=== PATIENT | female | born 1935 | race Caucasian/White ===

== ENCOUNTER 2017-04-19 16:37 | Emergency (ER) | payer MEDICARE, OTHER ==
[2017-04-19] MEDS ORDERED: AMOXICILLIN TR/POT CLAVULANATE 500-125 MG TAB PO ONE (18:22)
[2017-04-19] MEDS ORDERED: AMOXICILLIN TRIHYDRATE 500 MG CAPSULE PO ONE (18:22)
--- NOTE | 2017-04-19 18:23 | ER Document Report ---
ED Medical Screen (RME) - General Chief Complaint: Leg Swelling Stated Complaint: LEG SWELLING Time Seen by Provider: 04/19/17 18:17 Mode of Arrival: Ambulatory Information source: Patient Notes: 81 yo non dm, HTN, hypothyroid, female c/o soreness back of whole left leg since last week. Thigh seemed better after rubbing it with lindoment. Calf still hurts and its real swollen and red, warm. Pt has cat, which grabs her legs but she doesn't think it is a cat scratch-she runs into things. Leg is swollen, hot, tender with crusted wound that she was not aware of lower lateral leg. 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 TRAVEL OUTSIDE OF THE [place] IN LAST 30 DAYS: No - Related Data Allergies/Adverse Reactions: Estrogens Allergy (Verified 04/19/17 16:42) Past Medical History - Past Medical History Cardiac Medical History: Reports: Hx Hypercholesterolemia, Hx Hypertension Pulmonary Medical History: Reports: Hx Tuberculosis Past Surgical History: Reports: Hx Cardiac Surgery - 3 cabg - Immunizations Hx Diphtheria, Pertussis, Tetanus Vaccination: No Physical Exam - Vital signs Vitals: Temp Pulse BP Pulse Ox 98.1 F 82 160/78 H 97 04/19/17 16:56 04/19/17 16:56 04/19/17 16:56 04/19/17 16:56 Course - Vital Signs Vital signs: Temp Pulse Resp BP Pulse Ox 98.1 F 82 160/78 H 97 04/19/17 16:56 04/19/17 16:56 04/19/17 16:56 04/19/17 16:56
--- NOTE | 2017-04-19 20:50 | RADIOLOGY REPORT (SQ) ---
EXAM DESCRIPTION: VENOUS UNILATERAL LOWER COMPLETED DATE/TIME: 04/19/2017 8:39 pm REASON FOR STUDY: left lower leg swelling and pain COMPARISON: None. TECHNIQUE: Dynamic and static ramos scale and color images acquired of the left leg venous system. Se lected spectral images acquired with additional compression and augmentation maneuvers. The contralat eral common femoral vein and saphenofemoral junction were also imaged. Images stored on PACS. LIMITATIONS: None. FINDINGS: COMMON FEMORAL: Normal phasicity, compression and augmentation. No visualized echogenic ma terial on ramos scale. No defects on color images. FEMORAL: Normal compression and augmentation. No visualized echogenic material on ramos scale. No defe cts on color images. POPLITEAL: Normal compression, augmentation. No visualized echogenic material on ramos scale. No defec ts on color images. CALF VESSELS: Normal compression, augmentation. No visualized echogenic material on ramos scale. No de fects on color images. GSV and SSV: Normal compression, augmentation. No visualized echogenic material on ramos scale. No def ects on color images. ANY DEEP VENOUS INSUFFICIENCY: Not evaluated. ANY EVIDENCE OF POPLITEAL CYST: No. OTHER: No other significant finding. CONTRALATERAL COMMON FEMORAL VEIN AND SAPHENOFEMORAL JUNCTION: Normal phasicity, compression and augmentation. No visualized echogenic material on ramos scale. No de fects on color images. IMPRESSION: NO EVIDENCE DVT OR SVT IN THE LEFT LEG. TECHNICAL DOCUMENTATION: JOB ID: [id number] [id number] 2010 [employer]- All Rights Reserved
[2017-04-19 21:26] LABS: ABSOLUTE EOSINOPHILS # (AUTO) 0.1 10^3/uL (0.0-0.6); ABSOLUTE LYMPHOCYTES (AUTO) 1.4 10^3/uL (0.5-4.7); ABSOLUTE MONOCYTES (AUTO) 0.5 10^3/uL (0.1-1.4); ABSOLUTE NEUT (AUTO) 3.9 10^3/uL (1.7-8.2); BASOPHILS % (AUTO) 0.6 % (0-2); EOSINOPHILS % (AUTO) 1.7 % (0-6); HEMATOCRIT 36.4 % (36.0-47.0); HEMOGLOBIN 12.4 g/dL (12.0-15.5); MEAN CORPUSCULAR HEMOGLOBIN 30.1 pg (27.0-33.4); MEAN CORPUSCULAR VOLUME 88 fl (80-97); MONOCYTES % (AUTO) 8.8 % (3-13); PLATELET COUNT 309 10^3/uL (150-450); RED BLOOD COUNT 4.12 10^6/uL (3.72-5.28); RED CELL DISTRIBUTION WIDTH 13.2 % (11.5-14.0); SEGMENTED NEUTROPHILS % (AUTO) 65.9 % (42-78); TOTAL CELLS COUNTED % (AUTO) 100 %
[2017-04-19 21:34] LABS: INTERNATIONAL RATION (INR) 0.81; PROTHROMBIN TIME 11.8 SEC (11.4-15.4)
[2017-04-19 21:36] LABS: PARTIAL THROMBOPLASTIN TIME 28.5 SEC (23.5-35.8)
[2017-04-19 21:53] LABS: ALANINE AMINOTRANSFERASE 36 U/L (9-52); ALBUMIN 4.1 g/dL (3.5-5.0); ALKALINE PHOSPHATASE 76 U/L (38-126); ANION GAP 12 (5-19); ASPARTATE AMINO TRANSFERASE 31 U/L (14-36); BILIRUBIN,DIRECT 0.2 mg/dL (0.0-0.4); BILIRUBIN,TOTAL 0.4 mg/dL (0.2-1.3); BLOOD UREA NITROGEN 12 mg/dL (7-20); CALCIUM 10.3 mg/dL (8.4-10.2); CARBON DIOXIDE 27 mmol/L (22-30); CHLORIDE 87 mmol/L (98-107); GLUCOSE 94 mg/dL (75-110); POTASSIUM 3.8 mmol/L (3.6-5.0); SODIUM 125.5 mmol/L (137-145); TOTAL PROTEIN 6.9 g/dL (6.3-8.2)
[2017-04-20] MEDS ORDERED: AMOXICILLIN TRIHYDRATE 500 MG CAPSULE PO ONE (02:26)
[2017-04-20] MEDS ORDERED: AMOXICILLIN TR/POT CLAVULANATE 500-125 MG TAB PO ONE (02:26)
--- NOTE | 2017-04-20 02:29 | ER Document Report ---
ED Extremity Problem, Lower - General Chief Complaint: Leg Swelling Stated Complaint: LEG SWELLING Time Seen by Provider: 04/19/17 18:17 Mode of Arrival: Ambulatory Notes: Patient is an 81-year-old female comes emergency department for chief complaint of swelling and pain to her right leg. She states that over the past several days her right lower leg especially over the front of the leg and around the calf has become tender and red in appearance. She denies fever or chills. Initially she denies that her cat bites or scratches her and she states she thinks she might run into something, however when I continued to question her she admits that the cat has nipped her on multiple occasions. Patient does have a history of DVT, however this was when she was previously on estrogen, she is not on estrogen now. Patient denies any other complaints. Tetanus is up -to-date within 5 years reportedly. Daughter is at bedside. Patient comes from home. TRAVEL OUTSIDE OF THE [place] IN LAST 30 DAYS: No - Related Data Allergies/Adverse Reactions: Estrogens Allergy (Verified 04/19/17 16:42) Past Medical History - General Information source: Patient - Social History Smoking Status: Never Smoker Chew tobacco use (# tins/day): No Frequency of alcohol use: None Drug Abuse: None Lives with: Family Family History: Reviewed & Not Pertinent Patient has suicidal ideation: No Patient has homicidal ideation: No - Past Medical History Cardiac Medical History: Reports: Hx Hypercholesterolemia, Hx Hypertension Pulmonary Medical History: Reports: Hx Tuberculosis Renal/ Medical History: Denies: Hx Peritoneal Dialysis Past Surgical History: Reports: Hx Cardiac Surgery - 3 cabg - Immunizations Hx Diphtheria, Pertussis, Tetanus Vaccination: No Review of Systems - Review of Systems Constitutional: No symptoms reported EENT: No symptoms reported Cardiovascular: No symptoms reported Respiratory: No symptoms reported Gastrointestinal: No symptoms reported Genitourinary: No symptoms reported Female Genitourinary: No symptoms reported Musculoskeletal: See HPI Skin: See HPI Hematologic/Lymphatic: No symptoms reported Neurological/Psychological: No symptoms reported Physical Exam - Vital signs Vitals: Temp Pulse BP Pulse Ox 98.1 F 82 160/78 H 97 04/19/17 16:56 04/19/17 16:56 04/19/17 16:56 04/19/17 16:56 Interpretation: Normal - General General appearance: Appears well, Alert In distress: None - Patient smiling, alert, well-appearing - HEENT Head: Normocephalic, Atraumatic Eyes: Normal Pupils: PERRL - Respiratory Respiratory status: No respiratory distress Chest status: Nontender Breath sounds: Normal Chest palpation: Normal - Cardiovascular Rhythm: Regular Heart sounds: Normal auscultation Murmur: No - Abdominal Inspection: Normal Distension: No distension Bowel sounds: Normal Tenderness: Nontender Organomegaly: No organomegaly - Back Back: Normal, Nontender - Extremities General upper extremity: Normal inspection, Nontender, Normal color, Normal ROM , Normal temperature General lower extremity: Other - There is very slight soft tissue swelling of the left lower extremity, there are multiple scratch or bite george on the lower extremity over the anterior aspect, no open wounds. There is erythema and warmth over the distal tibia; no induration or fluctuance. No streaking/ lymphangitis noted. Normal distal neurovascular exam. - Neurological Neuro grossly intact: Yes Cognition: Normal Orientation: AAOx4 Ian Coma Scale Eye Opening: Spontaneous [place] Coma Scale Verbal: Oriented [place] Coma Scale Motor: Obeys Commands Ian Coma Scale Total: 15 Speech: Normal Motor strength normal: LUE, RUE, LLE, RLE Sensory: Normal - Psychological Associated symptoms: Normal affect, Normal mood - Skin Skin Temperature: Warm Skin Moisture: Dry Skin Color: Normal Course - Re-evaluation Re-evalutation: CBC unremarkable. Chemistry shows hyponatremia at 125.5. I discussed this with patient and daughter, they state her sodium is "always low". Patient has no confusion, no gait instability, no other symptoms other than left leg pain reported. Previous sodium in the system is 130. Unsure of her average. Patient is unfortunately on hydrochlorothiazide currently. She has this in combination with another blood pressure medication. Patient received Augmentin already when she arrived, she has been here approximately 8 hours, patient and daughter both state that the area of erythema and tenderness has actually significantly improved already since she has been here. Patient afebrile, not a diabetic, has no leukocytosis, able to ambulate on the lower extremity although there is obvious cellulitis. Patient and daughter are both asking to leave. I discussed potential admission for hyponatremia and lower extremity cellulitis, they state they want to go home. They state they do want a primary care that they can see in town instead of driving to go see them, they state that they will follow-up within the next 1 or 2 days if they are provided with this. After long discussion patient will be started on Augmentin, she will be given her first dose to take later today when she goes home, she will have her hydrochlorthiazide discontinued, she will have close follow-up to repeat her sodium levels, she will return if she develops any additional symptoms or any worsening signs of infection. Patient and daughter state satisfaction and agreement with plan. - Vital Signs Vital signs: Temp Pulse Resp BP Pulse Ox 98.2 F 70 16 136/66 H 98 04/20/17 03:24 04/20/17 03:24 04/20/17 03:24 04/20/17 03:24 04/20/17 03:24 - Laboratory Result Diagrams: 04/19/17 20:51 04/19/17 20:51 Laboratory results interpreted by me: 04/19/17 20:51 Sodium 125.5 L Chloride 87 L Calcium 10.3 H Discharge - Discharge Clinical Impression: Left leg pain, Hyponatremia Cellulitis Qualifiers: Site of cellulitis: extremity Site of cellulitis of extremity: lower extremity Laterality: left Qualified Code(s): L03.116 - Cellulitis of left lower limb Condition: Stable Disposition: HOME, SELF-CARE Additional Instructions: Ultrasound does not show blood clot, exam is consistent with cellulitis. Your sodium level is too low. Take the antibiotic pills given tonight at 6:30 AM today. Fill and take antibiotics as prescribed. You sodium is too low. Stop the telmisartan/hydrochlorothiazide, fill and begin telmisartan by itself without the hydrochlorothiazide. Follow-up within the next day or so for a recheck of your sodium and additional monitoring of your cellulitis. Return immediately for any concerning or worsening symptoms including confusion , difficulty with balance, seizure, fever of 100.4 or greater, spreading redness on your leg, or any other concerning symptoms. Prescriptions: Amox Tr/Potassium Clavulanate [Augmentin 875-125 Tablet] 1 tab PO BID 7 Days tablet Telmisartan [Micardis 80 mg Tablet] 80 mg PO DAILY #30 tablet Referrals: JIMY MIRAMONTES MD [ACTIVE STAFF] - Follow up tomorrow
[2017-04-20 03:25] VITALS: BP 136/66
== END 2017-04-20 03:25 | disposition home or self-care (01) ==
LOC: ER 16:37
DX: L03.116 Cellulitis of left lower limb (principal); E87.1 Hypo-osmolality and hyponatremia; M79.89 Other specified soft tissue disorders; M79.604 Pain in right leg
CPT/HCPCS: 99284; 36415; 87040; 85025; 85610; 85730; 80053; 83605; 93971; A9270 ×4

== ENCOUNTER → 2017-10-02 | Outpatient (CLI) | payer MEDICARE, OTHER ==
--- NOTE | 2017-10-02 12:13 | RADIOLOGY REPORT (SQ) ---
EXAM DESCRIPTION: CHEST PA/LATERAL COMPLETED DATE/TIME: 10/02/2017 11:47 am REASON FOR STUDY: COUGH COMPARISON: AP chest 02/28/2011 EXAM PARAMETERS: NUMBER OF VIEWS: two views TECHNIQUE: Digital Frontal and Lateral radiographic views of the chest acquired. RADIATION DOSE: NA LIMITATIONS: none FINDINGS: LUNGS AND PLEURA: Few Tara lines at both bases, could represent mild interstitial edema. No fluffy alveolar infiltrates worrisome for alveolar edema or pneumonia. No pleural effusion. No p neumothorax. MEDIASTINUM AND HILAR STRUCTURES: No masses or contour abnormalities. HEART AND VASCULAR STRUCTURES: No cardiomegaly. Old sternotomy for CABG BONES: No acute thoracic compression deformity HARDWARE: None in the chest. OTHER: No other significant finding. IMPRESSION: Few Tara lines at the bases, question mild interstitial edema. Old sternotomy for CABG. TECHNICAL DOCUMENTATION: JOB ID: [id number] [employer]- All Rights Reserved Reading location - IP/workstation name: [email or web address]
== END ==
LOC: OD 11:28
PROVIDERS: ATTEND Physician Assistant
DX: R05 Cough (principal); Z95.1 Presence of aortocoronary bypass graft
CPT/HCPCS: 71046

== ENCOUNTER → 2017-10-15 | Outpatient (CLI) | payer MEDICARE, OTHER ==
--- NOTE | 2017-10-15 13:18 | RADIOLOGY REPORT (SQ) ---
EXAM DESCRIPTION: CHEST PA/LATERAL COMPLETED DATE/TIME: 10/15/2017 12:35 pm REASON FOR STUDY: COUGH COMPARISON: 10/02/2017 EXAM PARAMETERS: NUMBER OF VIEWS: two views TECHNIQUE: Digital Frontal and Lateral radiographic views of the chest acquired. RADIATION DOSE: NA LIMITATIONS: none FINDINGS: LUNGS AND PLEURA: Slight bibasilar scarring or atelectasis more so on the left no acute p ulmonary consolidation. No pneumothorax or pleural effusion. MEDIASTINUM AND HILAR STRUCTURES: No masses or contour abnormalities. HEART AND VASCULAR STRUCTURES: Heart normal size. No evidence for failure. BONES: No acute findings. HARDWARE: Prior anterior median sternotomy and CABG. OTHER: No other significant finding. IMPRESSION: 1 Slight bibasilar atelectasis or scar. No acute pulmonary consolidation. TECHNICAL DOCUMENTATION: JOB ID: [id number] [employer]- All Rights Reserved Reading location - IP/workstation name: [email or web address]
== END ==
LOC: OD 12:14
PROVIDERS: ATTEND Physician Assistant
DX: R05 Cough (principal); Z95.1 Presence of aortocoronary bypass graft
CPT/HCPCS: 71046

== ENCOUNTER → 2019-06-05 | Outpatient (CLI) | payer MEDICARE, OTHER ==
--- NOTE | 2019-06-05 16:31 | RADIOLOGY REPORT (SQ) ---
EXAM DESCRIPTION: CHEST PA/LATERAL COMPLETED DATE/TIME: 06/05/2019 9:43 am REASON FOR STUDY: COUGH COMPARISON: 02/28/2011 EXAM PARAMETERS: NUMBER OF VIEWS: two views TECHNIQUE: Digital Frontal and Lateral radiographic views of the chest acquired. RADIATION DOSE: NA LIMITATIONS: none FINDINGS: LUNGS AND PLEURA: Chronic scarring left costophrenic angle. Diffuse interstitial chronic changes. MEDIASTINUM AND HILAR STRUCTURES: No masses or contour abnormalities. HEART AND VASCULAR STRUCTURES: Heart normal size. No evidence for failure. BONES: No acute findings. HARDWARE: CABG. OTHER: No other significant finding. IMPRESSION: No acute findings in the chest. TECHNICAL DOCUMENTATION: JOB ID: [id number] 2010 [employer]- All Rights Reserved Reading location - IP/workstation name: [email or web address]
== END ==
LOC: OD 09:17
PROVIDERS: ATTEND Physician Assistant
DX: R05 Cough (principal)
CPT/HCPCS: 71046